=== PATIENT | male | born 1985 | race Caucasian/White ===

== ENCOUNTER 2023-06-09 12:18 | Emergency (ER) | payer OTHER ==
[~2023-06-09] VITALS: Ht 172.7 cm; Wt 78.0 kg
[2023-06-09 12:26] VITALS: O2SAT 98
[2023-06-09 13:16] VITALS: BP 121/81; PULSE 56; RESP 18; TEMP 98.4
== END 2023-06-09 13:22 | disposition home or self-care (01) ==
LOC: ER 12:18
DX: M54.6 Pain in thoracic spine (principal)
CPT/HCPCS: 99281